=== PATIENT | female | born 1955 | race Caucasian/White ===

== ENCOUNTER 2024-06-25 12:50 | Emergency (ER) | payer OTHER, SELFPAY ==
[2024-06-25 13:15] VITALS: BP 148/71; PULSE 73; RESP 18; TEMP 37.2; O2SAT 95; BMI 33.3
--- NOTE | 2024-06-25 13:18 | XR_ITS ---
Examination:Left hip AP, lateral, AP pelvis 3 views Technique: Hip AP lateral, AP pelvis, 3 views Exam date and time:June 25, 2024 1324 hours INDICATIONS: Patient fell today with into the left hip, left hip pain. FINDINGS: Left hip bipolar hemiarthroplasty. Satisfactory alignment No hip or pelvic fracture IMPRESSION: Left hip bipolar hemiarthroplasty with satisfactory alignment.
--- NOTE | 2024-06-25 14:21 | EDNOTE_ITS ---
<Statement entered by Vani Lentz MD - 06/26/24 06:23> As co-signing physician, I was present and available for consult prn. I concur with the plan and care as documented by the midlevel provider. ED Fall Injury RME/HPI General Chief Complaint: Fall Stated Complaint: Fell onto her right hip Time Seen by Provider: 06/25/24 13:13 Source: patient Arrival date/time: 06/25/24 12:50 Mode of arrival: wheelchair Limitations: no limitations RME / HPI complaint: fall Onset (ago): day(s) (Earlier in the day) Fall from: standing (Ground-level fall from a standing position) Location of injury - extremities: Left: lower leg Severity: moderate Related Data Home Medications ?Medication ?Instructions ?Recorded ?Confirmed alprazolam 2 mg tablet 2 mg PO TID PRN Anxiety 06/1310/16/18 amlodipine 5 mg tablet 5 mg PO QDAY 07/10/18 hydroxyzine HCl 25 mg tablet 12.5 mg PO HS 07/10/18 levothyroxine 150 mcg tablet 300 mcg PO QDAY 07/10/18 10/16/18 ondansetron HCl 8 mg tablet 4 mg PO BID PRN Nausea 10/16/18 (Zofran) potassium chloride 20 mEq 20 meq PO QDAY 07/10/1805/31 tablet,extended release fluconazole 100 mg tablet 100 mg PO QDAY 07/13/1805/31 (Diflucan) Previous Rx's ?Medication ?Instructions ?Recorded lidocaine 5 % topical patch 1 patch topical Q24H PRN p ain #15 07/13/18 ea Allergies Allergy/AdvReac Type Severity Reaction Status Date / Time Opioids - Morphine Analogues Allergy Intermediate Anaphylaxis Verified 06/25/24 12:53 Tetracyclines Allergy Intermediate Anaphylaxis Verified 06/25/24 12:53 Review of Systems Constitutional Constitutional: Reports system reviewed and no additional complaints, except as documented Eyes Eyes: Reports system reviewed and no additional complaints, except as documented, Denies dry eyes, Denies exophthalmos and Reports floaters Cardiovascular Cardiovascular: Denies chest pain with activity and Denies claudication Past Medical History Past Medical History CARDIAC: Positive Hypertension; Negative Cardiac Disorders or Congestive Heart Failure RESPIRATORY: Negative Chronic Obstructive Pulmonary Disease (COPD) or Asthma GENITOURINARY: Negative Renal Disease MUSCULOSKELETAL: Positive Musculoskeletal Disorders ENDOCRINE: Positive Endocrine Disorders and Hypothyroidism; Negative Diabetes Mellitus Type 1 or Diabetes Mellitus Type 2 HEMATOLOGIC: Negative Sickle Cell Disease PSYCHO/SOCIAL: Positive Depression and Anxiety Surgical History SURGICAL: Positive Hysterectomy and Section Social History SMOKING STATUS: Never smoker SUBSTANCE USE: does not use ED Exam General Limitations: Present no limitations General appearance: Present alert and in no apparent distress Head Head exam: Present atraumatic Eye Eye exam: Present normal appearance, PERRL and EOMI ENT ENT exam: Present normal exam, normal oropharynx and mucous membranes moist Neck Neck exam: Present normal inspection, full ROM and trachea midline Chest Chest inspection: Present normal inspection and symmetric chest wall rise Respiratory Respiratory exam: Present normal lung sounds bilaterally Cardiovascular Cardiovascular exam: Present regular rate, normal rhythm and normal heart sounds Abdominal Exam Abdominal exam: Present soft and normal bowel sounds Extremities Exam Extremities exam: Present normal inspection, full ROM, normal capillary refill and pedal edema Back Exam Back exam: Present normal inspection and full ROM (Left lower extremity examined in a wheelchair. Patient is able to flex at the hip. He presents with left hip. The wound was intact with Post.) Neurological Exam Neurological exam: Present alert, oriented X3 and CN II-XII intact Psychiatric Psychiatric exam: Present normal affect and normal mood Skin Skin exam: Present warm, dry, intact and normal color Course Course Course Narrative: Patient had an x-ray x-ray was revealed to the patient. Quality Measures none Orders Category Date Time Status XR hip LT w pelvis 2-3V Stat Exams 06/25/24 13:18 Completed Vital Signs Vital signs: Vital Signs Temperature 98.9 F 06/25/24 13:15 Pulse Rate 73 06/25/24 13:15 Respiratory Rate 18 06/25/24 13:15 Blood Pressure 148/71 H 06/25/24 13:15 Pulse Oximetry (%) 95 06/25/24 13:15 Oxygen Delivery Method Room Air 06/25/24 13:15 Pulse ox room air is 95%. Fall MDM Narrative MDM Narrative:: Patient will have x-ray of the left hip. Patient's left hip x-ray and physical exam appear to be within normal limits. Patient data External records reviewed:: [facility] previous records and Other (specify) Clinical information provided by:: patient and none Social determinants that could affect healthcare access:: none Patient has the following chronic illnesses:: HYPERTENSION How is presenting disease/condition affected by chronic disease/condition?: no chronic disease Evaluation data The following diagnostics were reviewed and interpreted by me:: other (specify) Lab and/or radiology exams considered but not ordered:: N/A Interpretation Summary: N/A Medications / Prescriptions Medications or Prescriptions considered but not ordered:: N/A Medication administrations:: N/A Consultations Consultation(s) initiated? (list below): No Consultation #1 (Physician, Specialty, Details): N/A Diagnosis Fall Differential Diagnosis: compression fracture, concussion with loss of consciousness, concussion without loss of consciousness and other (Dislocated hip) Most likely diagnosis given after review of the tests above:: N/A Admission Indicated Admission indicated?: not indicated Admission Request Was there a request for admission?: No Disposition Plan Disposition Plan: Discharge Discharge Attestation Discharge Attestation: The patient and all family members were given an opportunity to ask questions and understood the discharge instructions. Discharge instructions specifically effects, indications for sooner follow up or return to the emergency department, and the expected course of current diagnosis. Patient condition: Stable Discharge Plan Plan Patient Disposition: HOME (Self Care) Discharge Disposition comment: PATIENT DISCHARGED TO HOME IN NO APPARENT DISTRESS. Prescriptions/Referrals Prescriptions/Med Rec: No Action ondansetron HCl [Zofran] 8 mg Tablet 4 mg PO BID PRN (Reason: Nausea) amlodipine 5 mg Tablet 5 mg PO QDAY levothyroxine 150 mcg Tablet 300 mcg PO QDAY hydroxyzine HCl 25 mg Tablet 12.5 mg PO HS alprazolam 2 mg Tablet 2 mg PO TID PRN (Reason: Anxiety) potassium chloride 20 mEq Tablet Extended Release 20 meq PO QDAY fluconazole [Diflucan] 100 mg Tablet 100 mg PO QDAY lidocaine 5 % adhesive patch,medicated 1 patch TOPICAL Q24H PRN (Reason: pain) Qty: 15 0RF Rx Instructions: leave on most painful area for 12 hrs Referrals: No Primary/Family,Physician [Primary Care Provider] - In 1 week Problem List Clinical Impression: Acute hip pain Impression comment: S/P FALL W HIP PAIN Patient/Caregiver Discharge Instructions Discharge Activity: walk with walker only Education Materials: ED Hip Contusion Print Language: Belarusian PA/BUS BOY Supervising Physician PA/BUS BOY Supervising Physician: KAREN
== END 2024-06-25 14:45 | disposition home or self-care (01) ==
PROVIDERS: Emergency Provider Emergency Medicine
DX: M25.559 Pain in unspecified hip (principal)
CPT/HCPCS: 73502; 99283